=== PATIENT | female | born 1995 | race Two or more races ===

== ENCOUNTER 2018-02-23 20:32 | Emergency (ER) | payer MEDICAID, OTHER ==
[~2018-02-23] VITALS: Ht 165.1 cm; Wt 77.1 kg
[2018-02-23 21:09] VITALS: BP 105/61
== END 2018-02-23 21:43 | disposition home or self-care (01) ==
LOC: ER 20:38
DX: S29.012A Strain of muscle and tendon of back wall of thorax, initial encounter (principal); S39.012A Strain of muscle, fascia and tendon of lower back, initial encounter; V43.62XA Car passenger injured in collision with other type car in traffic accident, initial encounter; Y93.89 Activity, other specified; Y92.89 Other specified places as the place of occurrence of the external cause; Y99.8 Other external cause status
CPT/HCPCS: 99283; A4606; Z7610

== ENCOUNTER 2018-03-24 20:15 | Emergency (ER) | payer OTHER ==
[~2018-03-24] VITALS: Ht 165.1 cm; Wt 68.0 kg
[2018-03-24 20:20] VITALS: BP 114/69
[2018-03-24] MEDS ORDERED: CEFTRIAXONE 500 MG VIAL ONE (20:47)
[2018-03-24] MEDS ORDERED: AZITHROMYCIN 250 MG TABLET ONE (20:47)
[2018-03-24] MEDS ORDERED: LIDOCAINE 0.5% HCL 50 ML VIAL ONE (20:48)
[2018-03-24] MEDS ORDERED: CEFTRIAXONE 500 MG VIAL IM ONE (21:00)
[2018-03-24] MEDS ORDERED: AZITHROMYCIN 250 MG TABLET PO ONE (21:00)
== END 2018-03-24 21:43 | disposition home or self-care (01) ==
LOC: ER 20:17
DX: Z11.3 Encounter for screening for infections with a predominantly sexual mode of transmission (principal); Z20.2 Contact with and (suspected) exposure to infections with a predominantly sexual mode of transmission
CPT/HCPCS: 87210-TC; 87491; 87591; A4606; J0696; J3490; Z7610

== ENCOUNTER 2019-11-08 00:28 | Emergency (ER) | payer SELFPAY ==
[~2019-11-08] VITALS: Ht 165.1 cm; Wt 62.1 kg
[2019-11-08 00:28] VITALS: BP 97/60
== END 2019-11-08 00:55 | disposition home or self-care (01) ==
LOC: ER 00:32
DX: R21 Rash and other nonspecific skin eruption (principal)

== ENCOUNTER 2019-12-08 05:55 | Emergency (ER) | payer SELFPAY ==
[~2019-12-08] VITALS: Ht 165.1 cm; Wt 61.2 kg
--- NOTE | 2019-12-08 06:21 | NUR ---
PT CAME TO ER BY SELF TO BED 9 C/O NAUSEA AND VOMITING. PT STATES THAT SHE CANNOT RETAIN ANY FLUIDS OR FOOD AND WILL VOMIT AFTER TAKING FOOD/FLUIDS BY MOUTH. PT STATES SHE ATE A HOT DOG FROM THE [facility] [employer] AND FELT UNSETTLING. AAOX4. NO SOB. BREATHING EVENLY AND UNLABORED. AWAITING MD KO
[2019-12-08] MEDS ORDERED: IV NS 0.9% 1,000 ML BAG IV ONE (06:30)
[2019-12-08] MEDS ORDERED: ONDANSETRON HCL/PF 4 MG/2 ML VIAL IVP ONE (06:30)
[2019-12-08] MEDS ORDERED: ONDANSETRON HCL/PF 4 MG/2 ML VIAL ONE (06:31)
[2019-12-08 06:54] LABS: BASOPHILS % (AUTO) 0.2 % (0.0-2.0); EOSINOPHILS % (AUTO) 1.8 % (0.0-6.0); HEMATOCRIT 43 % (33-45); LYMPHOCYTES # (AUTO) 0.3 /CMM (0.8-4.8); LYMPHOCYTES % (AUTO) 3.8 % (20.0-44.0); MEAN CORPUSCULAR HGB CONC 33 g/dl (31.0-36.0); MEAN CORPUSCULAR VOLUME 92 fL (82-100); MONOCYTES # (AUTO) 0.2 /CMM (0.1-1.30); MONOCYTES % (AUTO) 2.1 % (2.0-12.0); NEUTROPHILS % (AUTO) 92.1 % (43.0-81.0); PLATELET COUNT (AUTO) 206 /CMM (150-450); RED BLOOD CELL COUNT(AUTO) 4.64 MIL/uL (4.0-5.2); WHITE BLOOD COUNT (AUTO) 7.6 K/uL (4.3-11.0)
[2019-12-08 06:59] LABS: CREATININE 0.8 mg/dL (0.6-1.3); POTASSIUM 3.3 mmol/L (3.5-5.1)
[2019-12-08 07:06] LABS: ALBUMIN 3.9 g/dL (3.4-5.0); BILIRUBIN,DIRECT 0.2 mg/dL (0.0-0.2); BILIRUBIN,TOTAL 1.2 mg/dL (0.2-1.0); TOTAL PROTEIN, SERUM 7.4 g/dL (6.4-8.2)
[2019-12-08 07:19] VITALS: BP 102/67
--- NOTE | 2019-12-08 07:19 | NUR ---
IV removed. Catheter intact and site benign. Pressure and 4x4 applied to site. No bleeding noted. Patient discharged to home in stable condition. Written and verbal after care instructions given. Patient verbalizes understanding of instruction.
== END 2019-12-08 07:19 | disposition home or self-care (01) ==
LOC: ER 05:58
DX: A05.9 Bacterial foodborne intoxication, unspecified (principal); R11.2 Nausea with vomiting, unspecified
CPT/HCPCS: 36415; 80048; 80076; 84703; 85025; 96361; 96374; 99283; J2405; J7030

== ENCOUNTER 2024-03-12 13:49 | Emergency (ER) | payer MEDICAID ==
[~2024-03-12] VITALS: Ht 165.1 cm; Wt 58.5 kg
[2024-03-12] MEDS ORDERED: LORA10TA7 PO (16:07)
[2024-03-12] MEDS ORDERED: FLUT9.9S NS (16:07)
[2024-03-12] MEDS ORDERED: SODI88SP18 BNOSTRILS (16:07)
[2024-03-12] MEDS ORDERED: LORATADINE 10 MG TABLET ONE (16:18)
[2024-03-12] MEDS: LORATADINE 10 MG TABLET PO SCH (16:20)
[2024-03-12 16:26] VITALS: BP 130/70; TEMP 98.8; O2SAT 98
== END 2024-03-12 16:27 | disposition home or self-care (01) ==
LOC: ER 13:52
DX: J30.9 Allergic rhinitis, unspecified (principal); H10.13 Acute atopic conjunctivitis, bilateral; R04.0 Epistaxis; R07.81 Pleurodynia